=== PATIENT | male | born 1965 | race American Indian/Alaskan Native ===

== ENCOUNTER 2019-03-15 17:46 | Observation (INO) | payer OTHER ==
--- NOTE | 2019-03-15 18:44 | Emergency Department Report ---
HPI - General Chief Complaint: Fall Time Seen by Provider: 03/15/19 18:29 - HPI HPI: Room 26 The patient is a 53-year-old male presenting with chief complaint of syncope. The patient states she was initially to stay to help when he began to feel dizzy while standing. Family states the patient fell backwards and was unresponsive for 5-7 minutes. Patient denied any other preceding symptoms including chest pain, shortness of breath, palpitations or pain of any type. When asked how his feeling down the patient replies he feels "good." ED Past Medical Hx - Past Medical History Previous Medical History?: Yes Additional medical history: Cerebral anyeurysm s/p clipping - Surgical History Past Surgical History?: Yes Additional Surgical History: brain clips - Family History Family history: no significant - Social History Smoking Status: Never Smoker Substance Use Type: None (denies illicit drug use), Alcohol (occasional) - Medications Home Medications: Home Medications Medication Instructions Recorded Confirmed Last Taken Type AtorvaSTATin [Lipitor] 10 mg PO QHS 03/15/19 03/15/19 Unknown History DULoxetine [Cymbalta] 30 mg PO QDAY 03/15/19 03/15/19 Unknown History Docusate Sodium [Colace] 100 mg PO BID PRN 03/15/19 03/15/19 Unknown History levETIRAcetam [Keppra TAB] 1,000 mg PO BID 03/15/19 03/15/19 Unknown History ED Review of Systems ROS: Stated complaint: SYNCOPAL EPISODE Other details as noted in HPI Constitutional: no symptoms reported Eyes: denies: eye pain ENT: denies: throat pain Respiratory: no symptoms reported Cardiovascular: denies: chest pain, palpitations Endocrine: no symptoms reported Gastrointestinal: denies: abdominal pain Genitourinary: denies: dysuria Musculoskeletal: denies: back pain Neurological: other (syncope, dizziness). denies: headache Physical Exam - Physical Exam Vital Signs: Vital Signs 03/15/19 18:19 Temperature 98.4 F Pulse Rate 74 Respiratory 16 Rate Blood Pressure 113/72 O2 Sat by Pulse 97 Oximetry Physical Exam: GENERAL: The patient is well-developed well-nourished male lying on stretcher not appearing to be in acute distress. [] HEENT: Normocephalic. Atraumatic. Extraocular motions are intact. Patient has moist mucous membranes. NECK: Supple. I can midline CHEST/LUNGS: Clear to auscultation. There is no respiratory distress noted. HEART/CARDIOVASCULAR: Regular. There is no tachycardia. There is no gallop rub or murmur. ABDOMEN: Abdomen is soft, nontender. Patient has normal bowel sounds. There is no abdominal distention. SKIN: There is no rash. There is no edema. There is no diaphoresis. NEURO: The patient is awake, alert, and oriented. The patient is cooperative. The patient has no focal neurologic deficits. The patient has normal speech. Cranial nerves II through XII grossly intact, no drift MUSCULOSKELETAL: There is no evidence of acute injury. ED Course Vital Signs 03/15/19 18:19 Temperature 98.4 F Pulse Rate 74 Respiratory 16 Rate Blood Pressure 113/72 O2 Sat by Pulse 97 Oximetry ED Medical Decision Making - Lab Data Result diagrams: 03/15/19 19:30 03/15/19 19:30 Laboratory Tests 03/15/19 03/15/19 03/15/19 19:30 19:30 19:30 WBC 3.8 L RBC 4.20 Hgb 11.7 L Hct 36.4 MCV 87 MCH 28 MCHC 32 RDW 14.5 Plt Count 213 Lymph % (Auto) 49.0 H [place] % (Auto) 12.2 H Eos % (Auto) 3.1 Baso % (Auto) 0.2 Lymph # 1.8 [place] # 0.5 Eos # 0.1 Baso # 0.0 Seg Neutrophils % 35.5 L Seg Neutrophils # 1.3 L PT 15.1 H INR 1.20 H APTT 32.6 D-Dimer < 135.00 Sodium 143 Potassium 4.0 Chloride 106.6 Carbon Dioxide 25 Anion Gap 15 BUN 11 Creatinine 0.9 Estimated GFR > 60 BUN/Creatinine Ratio 12 Glucose 131 H Calcium 9.2 Magnesium 2.30 Total Bilirubin < 0.20 AST 14 ALT 11 Alkaline Phosphatase 81 Total Creatine Kinase 71 CK-MB (CK-2) < 1.0 CK-MB (CK-2) Rel Index 1.4 Troponin T < 0.010 Total Protein 6.8 Albumin 4.2 Albumin/Globulin Ratio 1.6 TSH Free T4 Plasma/Serum Alcohol 03/15/19 03/15/19 19:30 19:30 WBC RBC Hgb Hct MCV MCH MCHC RDW Plt Count Lymph % (Auto) [place] % (Auto) Eos % (Auto) Baso % (Auto) Lymph # [place] # Eos # Baso # Seg Neutrophils % Seg Neutrophils # PT INR APTT D-Dimer Sodium Potassium Chloride Carbon Dioxide Anion Gap BUN Creatinine Estimated GFR BUN/Creatinine Ratio Glucose Calcium Magnesium Total Bilirubin AST ALT Alkaline Phosphatase Total Creatine Kinase CK-MB (CK-2) CK-MB (CK-2) Rel Index Troponin T Total Protein Albumin Albumin/Globulin Ratio TSH 1.970 Free T4 0.75 L Plasma/Serum Alcohol < 0.01 - EKG Data -: EKG Interpreted by Me EKG shows normal: sinus rhythm Rate: normal - EKG Data When compared to previous EKG there are: previous EKG unavailable Interpretation: other (no ischemic changes seen) - Radiology Data Radiology results: report reviewed (CT head, CT cervical spine), image reviewed (CT head, CT cervical spine) Findings [facility] [address] [place] [address] Cat Scan Report Signed Patient: MARCIAL LARSON MR#: [id number] 9 : 1965 Acct:[id number] Age/Sex: 53 / M ADM Date: 03/15/19 Loc: ED Attending Dr: Ordering Physician: ELBA SOGN MD Date of Service: 03/15/19 Procedure(s): CT head/brain wo con Accession Number(s): [id number] cc: ELBA SONG MD CT head/brain wo con INDICATION / CLINICAL INFORMATION: 53 years Male; fall. TECHNIQUE: Routine CT head without contrast. All CT scans at this location are performed using CT dose reduction for ALARA by means of automated exposure control. CO MPARISON: None. FINDINGS: BRAIN / INTRACRANIAL CONTENTS: I do not see intracranial sequela from the trauma. No scalp hematoma is seen. Focal area of scalp thickening is seen in the right frontal region. No air-fluid level in the visualized portions of the paranasal sinuses. 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 I do not see recurrent subarachnoid hemorrhage or CT findings to suggest acute or subacute infarction. Both temporal horn tips are markedly dilated more on the right side suggesting volume loss in the hippocampi. No acute hemorrhage, mass effect, midline shift, hydrocephalus, or acute, large territorial infarct. CRANIOCERVICAL JUNCTION: No significant abnormality. ORBITS: No significant abnormality of visualized orbits. SINUSES / MASTOIDS: No significant abnormality of the visualized paranasal sinuses or mastoid air cells. ADDITIONAL FINDINGS: None. 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 Signer Name: Babak Ramires MD Signed: 03/15/2019 7:13 PM Workstation Name: [id number] Transcribed By: BS Dictated By: Babak Subramanian MD Electronically Authenticated By: Babak Subramanian MD Signed Date/Time: 03/15/191912 DD/ 09 TD/TT: Findings [facility] [address] [place] [address] Cat Scan Report Signed Patient: MARCIAL LARSON MR#: [id number] 9 : 1965 Acct:[id number] Age/Sex: 53 / M ADM Date: 03/15/19 Loc: ED Attending Dr: Ordering Physician: ELBA SONG MD Date of Service: 03/15/19 Procedure(s): CT cervical spine wo con Accession Number(s): [id number] cc: ELBA SNOG MD Exam: CT cervical spine History: fall; Technique: Contiguous thin cut axial images obtained through the cervical spine. Sagittal and coronal reconstructions performed by the technologist. All CT scans at this location are performed using CT dose reduction for ALARA by means of automated exposure control. Findings: No priors. There is no evidence of fracture or traumatic subluxation. Rigid spine is seen in the entire cervical spine to dense ossification of the anterior longitudinal ligament from C2 at least to T2 vertebral body. Ossification of the posterior longitudinal ligament is also seen. Interspinous ligament at C6-C7 level is also fused. Disc space is still preserved in the cervical region. Vertebral bodies are normal in height and alignment. No significant degenerative change seen in the uncinate or facet joints. No significant canal stenosis or osseous foraminal narrowing. Surrounding soft tissues are grossly normal. I mpression: I do not see fracture in the cervical spine. 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 ED Disposition Clinical Impression: Syncope Disposition: 09 OP ADMIT IP TO THIS HOSP Is pt being admited?: Yes Condition: Fair Instructions: Syncope (ED) Time of Disposition: 21:19 (hospitalist notified (Dr Brenner))
--- NOTE | 2019-03-15 19:18 | Cat Scan Report ---
CT head/brain wo con INDICATION / CLINICAL INFORMATION: 53 years Male; fall. TECHNIQUE: Routine CT head without contrast. All CT scans at this location are performed using CT dos e reduction for ALARA by means of automated exposure control. COMPARISON: None. FINDINGS: BRAIN / INTRACRANIAL CONTENTS: I do not see intracranial sequela from the trauma. No scalp hematoma i s seen. Focal area of scalp thickening is seen in the right frontal region. No air-fluid level in the visualized portions of the paranasal sinuses. 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 I do not see recurrent subarachnoid hemorrhage or CT findings to suggest acute or subacute infarction . Both temporal horn tips are markedly dilated more on the right side suggesting volume loss in the hip pocampi. No acute hemorrhage, mass effect, midline shift, hydrocephalus, or acute, large territorial infarct. CRANIOCERVICAL JUNCTION: No significant abnormality. ORBITS: No significant abnormality of visualized orbits. SINUSES / MASTOIDS: No significant abnormality of the visualized paranasal sinuses or mastoid air mateo ls. ADDITIONAL FINDINGS: None. 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 Signer Name: Babak Ramires MD Signed: 03/15/2019 7:13 PM Workstation Name: [id number]
--- NOTE | 2019-03-15 19:24 | Cat Scan Report ---
Exam: CT cervical spine History: fall; Technique: Contiguous thin cut axial images obtained through the cervical spine. Sagittal and marshall l reconstructions performed by the technologist. All CT scans at this location are performed using CT dose reduction for ALARA by means of automated exposure control. Findings: No priors. There is no evidence of fracture or traumatic subluxation. Rigid spine is seen in the entire cervical spine to dense ossification of the anterior longitudinal l igament from C2 at least to T2 vertebral body. Ossification of the posterior longitudinal ligament is also seen. Interspinous ligament at C6-C7 level is also fused. Disc space is still preserved in the cervical region. Vertebral bodies are normal in height and alignment. No significant degenerative change seen in the uncinate or facet joints. No significant canal stenosi s or osseous foraminal narrowing. Surrounding soft tissues are grossly normal. Impression: I do not see fracture in the cervical spine. 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
[2019-03-15 19:45] LABS: Basophils % (Auto) 0.2 % (0.0-1.8); Eosinophils # (Auto) 0.1 K/mm3 (0.0-0.4); Eosinophils % (Auto) 3.1 % (0.0-4.3); Hematocrit 36.4 % (35.5-45.6); Hemoglobin 11.7 gm/dl (11.8-15.2); Lymphocytes # (Auto) 1.8 K/mm3 (1.2-5.4); Mean Corpuscular HGB Conc 32 % (32-34); Mean Corpuscular Volume 87 fl (84-94); Monocytes # (Auto) 0.5 K/mm3 (0.0-0.8); Monocytes % (Auto) 12.2 % (0.0-7.3); Platelet Count 213 K/mm3 (140-440); Red Cell Distribution Width 14.5 % (13.2-15.2)
[2019-03-15 20:00] LABS: Partial Thromboplastin Time 32.6 Sec. (24.2-36.6)
[2019-03-15 20:09] LABS: Alanine Aminotransferase 11 units/L (7-56); Albumin 4.2 g/dL (3.9-5); BUN/Creatinine Ratio 12; Blood Urea Nitrogen 11 mg/dL (9-20); Calcium 9.2 mg/dL (8.4-10.2); Hemolysis Index 9
[2019-03-15 20:16] LABS: Creatine Kinase MB < 1.0 ng/mL (0.0-4.0); Free T4 (Free Thyroxine) 0.75 ng/dL (0.76-1.46)
[2019-03-15] MEDS ORDERED: ACETAMINOPHEN 325 MG TAB PO PRN (21:36)
[2019-03-15] MEDS ORDERED: ONDANSETRON 4 MG/2 ML INJ IV PRN (21:36)
--- NOTE | 2019-03-15 21:37 | History and Physical Report ---
History of Present Illness Chief complaint: I passed out History of present illness: 53 YO Male with Seizure Disorder, Obesity, HLD presents to ED for evaluation. Pt states that he was in his usual state of health when he suddenly felt dizzy while standing and subsequently lost consciousness. According to witnesses, the patient was confused after waking up and the entire episode lasted for approximately 5-7 minutes. Pt transported to [facility] via private vehicle. Pt seen and evaluated in ED. Pt placed in Observation status and admitted to medical floor for evaluation of syncope. Pt denies fever, chills, CP, shortness of breath, Palpitations, NVD, Trauma, BRBPR, Prolonged travel/immobility, individual/family history of DVT/PE/Bleeding/Blood Clotting Disorder, Productive Cough, Skin Rash or recent ill contacts. No prior admission for review. All listed medication reconciled at time of admission. Past History Past Medical History: other (see hpi) Past Surgical History: Other (Brain aneuryms clipping.) Social history: , lives with family. denies: smoking, alcohol abuse, prescription drug abuse Family history: no significant family history (reviewed) Medications and Allergies Allergies Allergy/AdvReac Type Severity Reaction Status Date / Time No Known Allergies Allergy Verified 03/15/19 18:19 Home Medications Medication Instructions Recorded Confirmed Last Taken Type AtorvaSTATin [Lipitor] 10 mg PO QHS 03/15/19 03/15/19 Unknown History DULoxetine [Cymbalta] 30 mg PO QDAY 03/15/19 03/15/19 Unknown History Docusate Sodium [Colace] 100 mg PO BID PRN 03/15/19 03/15/19 Unknown History levETIRAcetam [Keppra TAB] 1,000 mg PO BID 03/15/19 03/15/19 Unknown History Active Meds: Active Medications Acetaminophen (Tylenol) 650 mg PO Q4H PRN PRN Reason: Pain MILD(1-3)/Fever >100.5/MONTERO Ondansetron HCl (Zofran) 4 mg IV Q8H PRN PRN Reason: Nausea And Vomiting Sodium Chloride (Sodium Chloride Flush Syringe 10 Ml) 10 ml IV BID RONALDO Review of Systems Constitutional: no weight loss, no weight gain, no fever, no chills Ears, nose, mouth and throat: no ear pain, no ear discharge, no decreased hear ing, no nasal congestion Cardiovascular: syncope, no chest pain, no orthopnea Respiratory: no cough, no cough with sputum, no excessive sputum, no hemoptysis, no shortness of breath, no dyspnea on exertion Gastrointestinal: no nausea, no vomiting, no diarrhea, no constipation, no change in bowel habits Genitourinary Male: no hematuria, no flank pain, no discharge, no urinary frequency, no urinary hesitancy Rectal: no pain, no incontinence, no bleeding Musculoskeletal: no neck stiffness, no neck pain, no shooting arm pain, no arm numbness/tingling, no shooting leg pain Integumentary: no rash, no pruritis, no redness, no sores, no wounds Neurological: syncope, no transient paralysis, no paralysis, no weakness, no parathesias, no numbness, no tingling, no seizures Psychiatric: no anxiety, no memory loss, no change in sleep habits, no sleep disturbances, no hypersomnia, no change in libido, no suicidal ideation Endocrine: no cold intolerance, no heat intolerance, no polyphagia, no excessive thirst, no polydipsia, no polyuria, no nocturia Hematologic/Lymphatic: no easy bruising, no easy bleeding, no lymphedema Allergic/Immunologic: no urticaria, no allergic rhinitis, no persistent infec tions Exam - Constitutional Vitals: Temp Pulse Resp BP Pulse Ox 98 F 68 17 113/67 100 03/15/19 19:10 03/15/19 19:10 03/15/19 19:10 03/15/19 19:10 03/15/19 19:10 General appearance: Present: no acute distress, well-nourished - EENT Eyes: Present: PERRL ENT: hearing intact, clear oral mucosa - Neck Neck: Present: supple, normal ROM - Respiratory Respiratory effort: normal Respiratory: bilateral: CTA - Cardiovascular Heart Sounds: Present: S1 & S2. Absent: rub, click - Extremities Extremities: pulses symmetrical, No edema Peripheral Pulses: within normal limits - Abdominal General gastrointestinal: Present: soft, non-tender, non-distended, normal bowel sounds Male genitourinary: Present: normal - Integumentary Integumentary: Present: clear, warm, dry - Musculoskeletal Musculoskeletal: gait normal, strength equal bilaterally - Psychiatric Psychiatric: appropriate mood/affect, intact judgment & insight - Neurologic Neurologic: CNII-XII intact, moves all extremities Results - Labs CBC & Chem 7: 03/15/19 19:30 03/15/19 19:30 Labs: Abnormal lab results 03/15/19 03/15/19 03/15/19 Range/Units 19:30 19:30 19:30 WBC 3.8 L (4.5-11.0) K/mm3 Hgb 11.7 L (11.8-15.2) gm/dl Lymph % (Auto) 49.0 H (13.4-35.0) % [place] % (Auto) 12.2 H (0.0-7.3) % Seg Neutrophils % 35.5 L (40.0-70.0) % Seg Neutrophils # 1.3 L (1.8-7.7) K/mm3 PT 15.1 H (12.2-14.9) Sec. INR 1.20 H (0.87-1.13) Glucose 131 H (75-100) mg/dL Free T4 (0.76-1.46) ng/dL 03/15/19 Range/Units 19:30 WBC (4.5-11.0) K/mm3 Hgb (11.8-15.2) gm/dl Lymph % (Auto) (13.4-35.0) % [place] % (Auto) (0.0-7.3) % Seg Neutrophils % (40.0-70.0) % Seg Neutrophils # (1.8-7.7) K/mm3 PT (12.2-14.9) Sec. INR (0.87-1.13) Glucose (75-100) mg/dL Free T4 0.75 L (0.76-1.46) ng/dL Assessment and Plan - Patient Problems (1) Syncope Current Visit: Yes Status: Acute Qualifiers: Encounter type: initial encounter Plan to address problem: CT head, neuro check, seizure precautions, remote telemetry, (2) Seizure disorder Current Visit: Yes Status: Acute Plan to address problem: Keppra level, seizure precautions, neuro checks. (3) DVT prophylaxis Current Visit: Yes Status: Acute Plan to address problem: SCD to BLE while in bed,
[2019-03-15] MEDS ORDERED: DOCUSATE SODIUM 100 MG CAP PO PRN (21:38)
[2019-03-15] MEDS: levETIRAcetam 500 MG TAB PO SCH (22:05)
[2019-03-15] MEDS ORDERED: levETIRAcetam 500 MG TAB PO ONE (22:05)
[2019-03-15] MEDS ORDERED: SODIUM CHLORIDE 0.9% 1000 ML 1,000 ML ONE (22:38)
[2019-03-15 22:51] LABS: Bilirubin,Urine NEG (Negative); Blood,Urine NEG (Negative); Color,Urine Yellow (Yellow); Mucus,Urine FEW /HPF; Protein,Urine <15 mg/dL mg/dL (Negative)
[2019-03-15 22:59] LABS: Amphetamine Screen,Urine PRESUMPTIVE NEGATIVE; Benzodiazepines Screen,Urine PRESUMPTIVE NEGATIVE; Cocaine Screen,Urine PRESUMPTIVE NEGATIVE; Methadone Screen,Urine PRESUMPTIVE NEGATIVE; Opiate Screen,Urine PRESUMPTIVE NEGATIVE
[2019-03-15 23:12] LABS: Cannabinoid Screen,Urine PRESUMPTIVE POSITIVE
[2019-03-15] MEDS: SODIUM CHLORIDE 0.9% 1000 ML 1,000 ML IV SCH (23:28)
--- NOTE | 2019-03-16 09:37 | Progress Note ---
Assessment and Plan Assessment and plan: 53-year-old man with history of seizure disorder, obesity, hyperlipidemia who was in his usual state of health when he suddenly felt dizzy and lost consciousness. Per his he was in a standing position and fell. There was no seizure activity, he passed out and was unresponsive for 5 minutes after which he was back to normal mentation. Patient has history of cerebral aneurysm status post neurosurgery with aneurysm clip clip in August 2018 and since then patient has never returned to his previ ous mental status. His new baseline involved him being confused at all times. His is very concerned that he falls multiple times a day. She has trouble controlling his impulsive behavior. She is not able to take care of him because she has 4 small children at home CT head; no acute findings Diagnosis Chronic encephalomalacia with confusion due to previous cerebral aneurysm that is status post surgery. With behavioral disturbance Syncope Transient autonomic imbalance Seizure disorder Marijuana abuse Presumed dehydration -Acute metabolic encephalopathy Ataxia/gait instability Plan -Mental health consult pending, patient put on Haldol as needed and trazodone at bedtime, they will see the patient in the a.m. Patient has had some episodes of mild bradycardia, continue to monitor heart rate on telemetry Orthostatic vital signs were ordered yesterday and still pending -UDS positive for marijuana, patient counseled about cessation -Continue IV fluids -PT consult, would like subacute rehab placement Preventative health counseling performed for 17 minutes DVT prophylaxis with Lovenox History Interval history: Patient has been confused. He pulled out his IV line 3 times, has tried to get out of bed multiple times. Review of systems Constitutional: No fevers, no malaise, no joint pains CVS: No chest pain, no orthopnea, no pedal edema GI: No abdominal pain, no diarrhea, no vomiting, no constipation Respiratory: No shortness of breath, no wheezing, no coughing Hospitalist Physical - Physical exam Narrative exam: General.: Appears well, no distress, nontoxic HEENT: Moist mucous membranes, extraocular muscles intact, no lymphadenopathy Neck: supple Cardiac: S1-S2 heard Lungs: clear to auscultation bilaterally Abdomen: soft , nontender, nondistended, bowel sounds positive Extremities: no edema clubbing or cyanosis Skin: no rash or lesions Neurologic: no gross focal deficits, patient is confused, thinks it is 1998 that he is at [facility]. He is only oriented to person and is unable to articulate why he is even in the hospital. Psych: calm, and cooperative, but very impulsive - Constitutional Vitals: Temp Pulse Resp BP Pulse Ox 98.1 F 58 L 18 121/70 99 03/16/19 06:24 03/16/19 06:24 03/16/19 06:24 03/16/19 06:24 03/16/19 05:53 General appearance: Present: no acute distress, well-nourished Results - Labs CBC & Chem 7: 03/15/19 19:30 03/15/19 19:30 Labs: Laboratory Last Values WBC 3.8 K/mm3 (4.5-11.0) L 03/15/19 19: RBC 4.20 M/mm3 (3.65-5.03) 03/15/19 19:30 Hgb 11.7 gm/dl (11.8-15.2) L 03/15/19 19:30 Hct 36.4 % (35.5-45.6) 03/15/19 19:30 MCV 87 fl (84-94) 03/15/19 19:30 MCH 28 pg (28-32) 03/15/19 19:30 MCHC 32 % (32-34) 03/15/19 19:30 RDW 14.5 % (13.2-15.2) 03/15/19 19:30 Plt Count 213 K/mm3 (140-440) 03/15/19 19:30 Lymph % (Auto) 49.0 % (13.4-35.0) H 03/15/19 19:30 [place] % (Auto) 12.2 % (0.0-7.3) H 03/15/19 19:30 Eos % (Auto) 3.1 % (0.0-4.3) 03/15/19 19:30 Baso % (Auto) 0.2 % (0.0-1.8) 03/15/19 19:30 Lymph # 1.8 K/mm3 (1.2-5.4) 03/15/19 19:30 [place] # 0.5 K/mm3 (0.0-0.8) 03/15/19 19:30 Eos # 0.1 K/mm3 (0.0-0.4) 03/15/19 19:30 Baso # 0.0 K/mm3 (0.0-0.1) 03/15/19 19:30 Seg Neutrophils % 35.5 % (40.0-70.0) L 03/15/19 19:30 Seg Neutrophils # 1.3 K/mm3 (1.8-7.7) L 03/15/19 19:30 PT 15.1 Sec. (12.2-14.9) H 03/15/19 19:30 INR 1.20 (0.87-1.13) H 03/15/19 19:30 APTT 32.6 Sec. (24.2-36.6) 03/15/19 19:30 D-Dimer < 135.00 ng/mlDDU (0-234) 03/15/19 19:30 Sodium 143 mmol/L (137-145) 03/15/19 19:30 Potassium 4.0 mmol/L (3.6-5.0) 03/15/19 19:30 Chloride 106.6 mmol/L (98-107) 03/15/19 19:30 Carbon Dioxide 25 mmol/L (22-30) 03/15/19 19:30 Anion Gap 15 mmol/L 03/15/19 19:30 BUN 11 mg/dL (9-20) 03/15/19 19:30 Creatinine 0.9 mg/dL (0.8-1.5) 03/15/19 19:30 Estimated GFR > 60 ml/min 03/15/19 19:30 BUN/Creatinine Ratio 12 % 03/15/19 19:30 Glucose 131 mg/dL (75-100) H 03/15/19 19:30 Calcium 9.2 mg/dL (8.4-10.2) 03/15/19 19:30 Magnesium 2.30 mg/dL (1.7-2.3) 03/15/19 19:30 Total Bilirubin < 0.20 mg/dL (0.1-1.2) 03/15/19 19:30 AST 14 units/L (5-40) 03/15/19 19:30 ALT 11 units/L (7-56) 03/15/19 19:30 Alkaline Phosphatase 81 units/L (35-129) 03/15/19 19:30 Total Creatine Kinase 71 units/L (55-170) 03/15/19 19:30 CK-MB (CK-2) < 1.0 ng/mL (0.0-4.0) 03/15/19 19:30 CK-MB (CK-2) Rel Index 1.4 (0-4) 03/15/19 19:30 Troponin T < 0.010 ng/mL (0.00-0.029) 03/15/19 19:30 Total Protein 6.8 g/dL (6.3-8.2) 03/15/19 19:30 Albumin 4.2 g/dL (3.9-5) 03/15/19 19: Albumin/Globulin Ratio 1.6 % 03/15/19 19: TSH 1.970 mlU/mL (0.270-4.200) 03/15/19 19: Free T4 0.75 ng/dL (0.76-1.46) L 03/15/19 19:30 Urine Color Yellow (Yellow) 03/15/19 22:11 Urine Turbidity Clear (Clear) 03/15/19 22:11 Urine pH 7.0 (5.0-7.0) 03/15/19 22:11 Ur Specific [place] 1.016 (1.003-1.030) 03/15/19 22:11 Urine Protein <15 mg/dl mg/dL (Negative) 03/15/19 22:11 Urine Glucose (UA) Neg mg/dL (Negative) 03/15/19 22:11 Urine Ketones Neg mg/dL (Negative) 03/15/19 22:11 Urine Blood Neg (Negative) 03/15/19 22:11 Urine Nitrite Neg (Negative) 03/15/19 22:11 Urine Bilirubin Neg (Negative) 03/15/19 22:11 Urine Urobilinogen 2.0 mg/dL (<2.0) 03/15/19 22:11 Ur Leukocyte Esterase Neg (Negative) 03/15/19 22:11 Urine WBC (Auto) 1.0 /HPF (0.0-6.0) 03/15/19 22:11 Urine RBC (Auto) 1.0 /HPF (0.0-6.0) 03/15/19 22:11 U Epithel Cells (Auto) < 1.0 /HPF (0-13.0) 03/15/19 22:11 Urine Mucus Few /HPF 03/15/19 22:11 Urine Opiates Screen Presumptive negative 03/15/19 22:11 Urine Methadone Screen Presumptive negative 03/15/19 22:11 Ur Barbiturates Screen Presumptive negative 03/15/19 22:11 Ur Phencyclidine Scrn Presumptive negative 03/15/19 22:11 Ur Amphetamines Screen Presumptive negative 03/15/19 22:11 U Benzodiazepines Scrn Presumptive negative 03/15/19 22:11 Urine Cocaine Screen Presumptive negative 03/15/19 22:11 U Marijuana (THC) Screen Presumptive positive 03/15/19 22:11 Drugs of Abuse Note Disclamer 03/15/19 22:11 Plasma/Serum Alcohol < 0.01 % (0-0.07) 03/15/19 19:30 Active Medications - Current Medications Current Medications: Generic Name Dose Route Start Last Admin Trade Name Freq PRN Reason Stop Dose Admin Acetaminophen 650 mg 03/15/19 21:36 Tylenol PO Q4H PRN Pain MILD(1-3)/Fever >100.5/MONTERO Atorvastatin Calcium 10 mg 03/15/19 22:00 03/15/19 22:05 Atorvastatin PO 10 mg QHS RONALDO Administration Docusate Sodium 100 mg 03/15/19 21:38 Colace PO BID PRN Constipation Duloxetine HCl 30 mg 03/16/19 10:00 Cymbalta PO QDAY RONALDO Enoxaparin Sodium 40 mg 03/16/19 22:00 Enoxaparin SUB-Q QDAY@2200 RONALDO Sodium Chloride 1,000 mls @ 100 mls/hr 03/15/19 22:00 03/15/19 23:28 Nacl 0.9% 1000 Ml IV 100 mls/hr DIRECT RONALDO Administration Levetiracetam 1,000 mg 03/15/19 22:00 03/15/19 22:05 Keppra PO 1,000 mg BID RONALDO Administration Ondansetron HCl 4 mg 03/15/19 21:36 Zofran IV Q8H PRN Nausea And Vomiting Sodium Chloride 10 ml 03/15/19 22:00 03/15/19 22:01 Sodium Chloride Flush Syringe 10 Ml IV 10 ml BID RONALDO Administration Sodium Chloride 10 ml 03/15/19 21:36 Sodium Chloride Flush Syringe 10 Ml IV PRN PRN LINE FLUSH
[2019-03-16] MEDS: levETIRAcetam 500 MG TAB PO SCH ×2 (10:00→21:10)
[2019-03-16] MEDS: DULoxetine 30 MG CAP PO SCH (10:00)
[2019-03-16] MEDS: SODIUM CHLORIDE 0.9% 1000 ML 1,000 ML IV SCH (18:29)
[2019-03-16] MEDS: ENOXAPARIN 40 MG/0.4 ML INJ SUB-Q SCH (21:10)
[2019-03-16] MEDS: diphenhydrAMINE 25 MG CAP PO PRN (21:12)
[2019-03-16] MEDS ORDERED: traZODone 50 MG TAB PO SCH (22:00)
[2019-03-17] MEDS: SODIUM CHLORIDE 0.9% 1000 ML 1,000 ML IV SCH ×2 (04:09→18:13)
[2019-03-17] MEDS: DULoxetine 30 MG CAP PO SCH (09:41)
[2019-03-17] MEDS: HALOPERIDOL 1 MG TAB PO PRN ×2 (09:41→20:09)
[2019-03-17] MEDS: levETIRAcetam 500 MG TAB PO SCH ×3 (09:42→21:30)
[2019-03-17] MEDS: LORazepam 2 MG/ML VIAL IV PRN (14:33)
--- NOTE | 2019-03-17 15:32 | Consultation ---
History of Present Illness - Reason for Consult Consult date: 03/17/19 Reason for consult: Mental Health Evaluation Requesting physician: NA JASSO - Chief Complaint Chief complaint: "I'm okay today" - History of Present Psychiatric Illness 53 y.o. male who presented to the ER for syncope. Psychiatry was consulted to see the patient for behavioral disturbance. Today the patient was calm, but confused during the assessment. Some of his answers to questions were not logical. Per collateral information from the patient's Yael Dukes who was at the [facility], she stated that her mental status changed after he was dx with a Cerebral Aneurysm in August 2018. She stated that he had an Aneurysm Clip after being dx. She stated that the patient confused and fall often. She denies a past psy hx by her . 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 She denies substance/alcohol abuse hx by her when asked. She did sate that the patient isn't getting sleep at night. The patient denies SI/HI's. Medications and Allergies Allergies Allergy/AdvReac Type Severity Reaction Status Date / Time No Known Allergies Allergy Verified 03/15/19 18:19 Home Medications Medication Instructions Recorded Confirmed Last Taken Type AtorvaSTATin [Lipitor] 10 mg PO QHS 03/15/19 03/15/19 Unknown History DULoxetine [Cymbalta] 30 mg PO QDAY 03/15/19 03/15/19 Unknown History Docusate Sodium [Colace] 100 mg PO BID PRN 03/15/19 03/15/19 Unknown History levETIRAcetam [Keppra TAB] 1,000 mg PO BID 03/15/19 03/15/19 Unknown History Active Meds: Active Medications Acetaminophen (Tylenol) 650 mg PO Q4H PRN PRN Reason: Pain MILD(1-3)/Fever >100.5/MONTERO Atorvastatin Calcium (Atorvastatin) 10 mg PO QHS RONALDO Last Admin: 03/16/19 21:12 Dose: 10 mg Documented by: Diphenhydramine HCl (Benadryl) 25 mg PO Q6H PRN PRN Reason: Itching Last Admin: 03/16/19 21:12 Dose: 25 mg Documented by: Docusate Sodium (Colace) 100 mg PO BID PRN PRN Reason: Constipation Duloxetine HCl (Cymbalta) 30 mg PO QDAY [facility] Last Admin: 03/17/19 09:41 Dose: 30 mg Documented by: Enoxaparin Sodium (Enoxaparin) 40 mg SUB-Q QDAY@2200 [facility] Last Admin: 03/16/19 21:10 Dose: 40 mg Documented by: Haloperidol (Haldol) 1 mg PO Q6H PRN PRN Reason: Agitation Last Admin: 03/17/19 09:41 Dose: 1 mg Documented by: Sodium Chloride (Nacl 0.9% 1000 Ml) 1,000 mls @ 100 mls/hr IV DIRECT [facility] Last Admin: 03/17/19 04:09 Dose: 100 mls/hr Documented by: Levetiracetam (Keppra) 1,000 mg PO BID [facility] Last Admin: 03/17/19 09:42 Dose: 1,000 mg Documented by: Lorazepam (Ativan) 1 mg IV Q4H PRN PRN Reason: Agitation Last Admin: 03/17/19 14:33 Dose: 1 mg Documented by: Ondansetron HCl (Zofran) 4 mg IV Q8H PRN PRN Reason: Nausea And Vomiting Sodium Chloride (Sodium Chloride Flush Syringe 10 Ml) 10 ml IV BID [facility] Last Admin: 03/17/19 09:42 Dose: 10 ml Documented by: Sodium Chloride (Sodium Chloride Flush Syringe 10 Ml) 10 ml IV PRN PRN PRN Reason: LINE FLUSH Past psychiatric history - Past Medical History Past Medical History: other (Cerebral Aneurysm ) Past Surgical History: Other (Aneurysm Clip ) - past Psychiatric treatment and history psychiatric treatment history: Denies a psy hx and afam psy hx. This was confirmed by the patient's Yael Dukes. - Social History Social history: lives with family Mental Status Exam - Vital signs Last Vital Signs Temp 98.2 F 03/17/19 12:05 Pulse 82 03/17/19 12:05 Resp 18 03/17/19 12:05 BP 136/93 03/17/19 12:05 Pulse Ox 100 03/17/19 12:05 - Exam Narrative exam: MSE: Appearance: calm, cooperative Behavior: regular eye contact Speech: regular rate and tone Mood:: "well" Affect: congruent to mood Thought Process: some confusion Thought Content: denies SI/HI's and AVH's Motor Activity: ambulatory Cognition: A/O x2 Insight: limited Judgment: variable Results Result Diagrams: 03/19/19 06:53 03/19/19 06:53 All other labs normal. Assessment and Plan Assessment and plan: Impression: Hx of Cerebral Aneurysm/Aneurysm Clip. Insomnia. Today the patient was calm, but somewhat confused during the assessment. The patient's mental status change is possible residual from past neuro changes. Recommendation/Plan: Start Melatonin 5 mg PO HS for sleep. Will follow up with the patient in [address] Marjorie Robert.
--- NOTE | 2019-03-17 15:34 | Progress Note ---
Assessment and Plan Assessment and plan: Patient is a 53-year-old man with history of seizure disorder, SDH and hyperlipidemia who presented with a syncopal fall and confusion. Patient has history of cerebral aneurysm status post neurosurgery with aneurysm clip clip in August 2018 and since then patient has never returned to his previous mental status. His new baseline involved him being confused at all times. His is very concerned that he falls multiple times a day. She has trouble controlling his impulsive behavior. She is not able to take care of him because she has 4 small children at home. 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 * CT cervical spine without contrast Impression: I do not see fracture in the cervical spine. 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 With behavioral disturbance: Await mental health evaluation, H/O SDH: consult Neurology Syncope with fall, etiology unknown, most likely Transient autonomic imbalance post concussion syndrome Seizure disorder: continue anti-seizure medication, consult Neurology, order EEG Marijuana abuse; patient counseled about cessation Presumed dehydration Ataxia/gait instability: PT DVT prophylaxis with Lovenox Disposition: continue inpatient care, SNF pending History Interval history: Patient was seen and examined. Follow-up on current diagnosis. No overnight events reported to me. Imaging, nursing note, chart, labs and old chart reviewed. Discussed with patient. Hospitalist Physical - Physical exam Narrative exam: Gen: WDWN, NAD, Awake, Alert, Orientated x 1 HEENT: NCAT, EOMI, PERRL, OP Clear Neck: supple, no adenopathy, no thyromegaly, no JVD CVS/Heart: RRR, normal S1S2, pulses present bilaterally Chest/Lungs: CTA B, Symmetrical chest expansion, good air entry bilaterally GI/Abdomen: soft, NTND, good bowel sounds, no guarding or rebound /Bladder: no suprapubic tenderness, no CVA or paraspinal tenderness Extermity/Skin: no c/c/e, no obvious rash MSK: FROM x 4 Neuro: CN 2-12 grossly intact, no new focal deficits Psych: calm - Constitutional Vitals: Temp Pulse Resp BP Pulse Ox 98.2 F 82 18 136/93 100 03/17/19 12:05 03/17/19 12:05 03/17/19 12:05 03/17/19 12:05 03/17/19 12:05 General appearance: Present: no acute distress, well-nourished Results - Labs CBC & Chem 7: 03/15/19 19:30 03/15/19 19:30 Labs: Laboratory Last Values WBC 3.8 K/mm3 (4.5-11.0) L 03/15/19 19:30 RBC 4.20 M/mm3 (3.65-5.03) 03/15/19 19:30 Hgb 11.7 gm/dl (11.8-15.2) L 03/15/19 19:30 Hct 36.4 % (35.5-45.6) 03/15/19 19:30 MCV 87 fl (84-94) 03/15/19 19:30 MCH 28 pg (28-32) 03/15/19 19:30 MCHC 32 % (32-34) 03/15/19 19:30 RDW 14.5 % (13.2-15.2) 03/15/19 19:30 Plt Count 213 K/mm3 (140-440) 03/15/19 19:30 Lymph % (Auto) 49.0 % (13.4-35.0) H 03/15/19 19:30 [place] % (Auto) 12.2 % (0.0-7.3) H 03/15/19 19:30 Eos % (Auto) 3.1 % (0.0-4.3) 03/15/19 19:30 Baso % (Auto) 0.2 % (0.0-1.8) 03/15/19 19:30 Lymph # 1.8 K/mm3 (1.2-5.4) 03/15/19 19:30 [place] # 0.5 K/mm3 (0.0-0.8) 03/15/19 19:30 Eos # 0.1 K/mm3 (0.0-0.4) 03/15/19 19:30 Baso # 0.0 K/mm3 (0.0-0.1) 03/15/19 19:30 Seg Neutrophils % 35.5 % (40.0-70.0) L 03/15/19 19:30 Seg Neutrophils # 1.3 K/mm3 (1.8-7.7) L 03/15/19 19:30 PT 15.1 Sec. (12.2-14.9) H 03/15/19 19:30 INR 1.20 (0.87-1.13) H 03/15/19 19:30 APTT 32.6 Sec. (24.2-36.6) 03/15/19 19:30 D-Dimer < 135.00 ng/mlDDU (0-234) 03/15/19 19:30 Sodium 143 mmol/L (137-145) 03/15/19 19:30 Potassium 4.0 mmol/L (3.6-5.0) 03/15/19 19:30 Chloride 106.6 mmol/L (98-107) 03/15/19 19:30 Carbon Dioxide 25 mmol/L (22-30) 03/15/19 19:30 Anion Gap 15 mmol/L 03/15/19 19:30 BUN 11 mg/dL (9-20) 03/15/19 19:30 Creatinine 0.9 mg/dL (0.8-1.5) 03/15/19 19:30 Estimated GFR > 60 ml/min 03/15/19 19:30 BUN/Creatinine Ratio 12 % 03/15/19 19:30 Glucose 131 mg/dL (75-100) H 03/15/19 19:30 Calcium 9.2 mg/dL (8.4-10.2) 03/15/19 19:30 Magnesium 2.30 mg/dL (1.7-2.3) 03/15/19 19:30 Total Bilirubin < 0.20 mg/dL (0.1-1.2) 03/15/19 19:30 AST 14 units/L (5-40) 03/15/19 19:30 ALT 11 units/L (7-56) 03/15/19 19:30 Alkaline Phosphatase 81 units/L (35-129) 03/15/19 19:30 Total Creatine Kinase 71 units/L (55-170) 03/15/19 19:30 CK-MB (CK-2) < 1.0 ng/mL (0.0-4.0) 03/15/19 19:30 CK-MB (CK-2) Rel Index 1.4 (0-4) 03/15/19 19: Troponin T < 0.010 ng/mL (0.00-0.029) 03/15/19 19:30 Total Protein 6.8 g/dL (6.3-8.2) 03/15/19 19: Albumin 4.2 g/dL (3.9-5) 03/15/19 19: Albumin/Globulin Ratio 1.6 % 03/15/19 19: TSH 1.970 mlU/mL (0.270-4.200) 03/15/19 19: Free T4 0.75 ng/dL (0.76-1.46) L 03/15/19 19:30 Urine Color Yellow (Yellow) 03/15/19 22:11 Urine Turbidity Clear (Clear) 03/15/19 22:11 Urine pH 7.0 (5.0-7.0) 03/15/19 22:11 Ur Specific [place] 1.016 (1.003-1.030) 03/15/19 22:11 Urine Protein <15 mg/dl mg/dL (Negative) 03/15/19 22:11 Urine Glucose (UA) Neg mg/dL (Negative) 03/15/19 22:11 Urine Ketones Neg mg/dL (Negative) 03/15/19 22:11 Urine Blood Neg (Negative) 03/15/19 22:11 Urine Nitrite Neg (Negative) 03/15/19 22:11 Urine Bilirubin Neg (Negative) 03/15/19 22:11 Urine Urobilinogen 2.0 mg/dL (<2.0) 03/15/19 22:11 Ur Leukocyte Esterase Neg (Negative) 03/15/19 22:11 Urine WBC (Auto) 1.0 /HPF (0.0-6.0) 03/15/19 22:11 Urine RBC (Auto) 1.0 /HPF (0.0-6.0) 03/15/19 22:11 U Epithel Cells (Auto) < 1.0 /HPF (0-13.0) 03/15/19 22:11 Urine Mucus Few /HPF 03/15/19 22:11 Urine Opiates Screen Presumptive negative 03/15/19 22:11 Urine Methadone Screen Presumptive negative 03/15/19 22:11 Ur Barbiturates Screen Presumptive negative 03/15/19 22:11 Ur Phencyclidine Scrn Presumptive negative 03/15/19 22:11 Ur Amphetamines Screen Presumptive negative 03/15/19 22:11 U Benzodiazepines Scrn Presumptive negative 03/15/19 22:11 Urine Cocaine Screen Presumptive negative 03/15/19 22:11 U Marijuana (THC) Screen Presumptive positive 03/15/19 22:11 Drugs of Abuse Note Disclamer 03/15/19 22:11 Plasma/Serum Alcohol < 0.01 % (0-0.07) 03/15/19 19:30 Active Medications - Current Medications Current Medications: Generic Name Dose Route Start Last Admin Trade Name Freq PRN Reason Stop Dose Admin Acetaminophen 650 mg 03/15/19 21:36 Tylenol PO Q4H PRN Pain MILD(1-3)/Fever >100.5/MONTERO Atorvastatin Calcium 10 mg 03/15/19 22:00 03/16/19 21:12 Atorvastatin PO 10 mg QHS RONALDO Administration Diphenhydramine HCl 25 mg 03/16/19 20:40 03/16/19 21:12 Benadryl PO 25 mg Q6H PRN Administration Itching Docusate Sodium 100 mg 03/15/19 21:38 Colace PO BID PRN Constipation Duloxetine HCl 30 mg 03/16/19 10:00 03/17/19 09:41 Cymbalta PO 30 mg QDAY RONALDO Administration Enoxaparin Sodium 40 mg 03/16/19 22:00 03/16/19 21:10 Enoxaparin SUB-Q 40 mg QDAY@2200 RONALDO Administration Haloperidol 1 mg 03/16/19 12:02 03/17/19 09:41 Haldol PO 1 mg Q6H PRN Administration Agitation Sodium Chloride 1,000 mls @ 100 mls/hr 03/15/19 22:00 03/17/19 04:09 Nacl 0.9% 1000 Ml IV 100 mls/hr DIRECT RONALDO Administration Levetiracetam 1,000 mg 03/15/19 22:00 03/17/19 09:42 Keppra PO 1,000 mg BID RONALDO Administration Lorazepam 1 mg 03/17/19 14:23 03/17/19 14:33 Ativan IV 1 mg Q4H PRN Administration Agitation Ondansetron HCl 4 mg 03/15/19 21:36 Zofran IV Q8H PRN Nausea And Vomiting Sodium Chloride 10 ml 03/15/19 22:00 03/17/19 09:42 Sodium Chloride Flush Syringe 10 Ml IV 10 ml BID RONALDO Administration Sodium Chloride 10 ml 03/15/19 21:36 Sodium Chloride Flush Syringe 10 Ml IV PRN PRN LINE FLUSH
[2019-03-17] MEDS: diphenhydrAMINE 25 MG CAP PO PRN (20:09)
[2019-03-17] MEDS: ENOXAPARIN 40 MG/0.4 ML INJ SUB-Q SCH ×2 (20:10→21:29)
--- NOTE | 2019-03-17 20:25 | Consultation ---
History of Present Illness Consult date: 03/17/19 Reason for Consult: Syncope Chief complaint: Syncope History of present illness: Patient is a 53 y/o man w/ a h/o stroke w/ residual cognitive impairment and behavioral changes, h/o cerebral aneurysm s/p clipping, h/o seizures. He p/w episode of syncope. he reportedly was feeling dizzy, and suddenly lost consciousness. Patient does not recall what happened when he had episode. He does not report any loss of bowel/bladder control or tongue biting during episode. He states that he is not compliant with keppra at home, and that he manages his own medications. Patient reportedly had loss of consciousness for 5- 7 minutes. Past History Past Medical History: other (h/o stroke w/ residual cognitive impairment and behavioral changes, h/o cerebral aneurysm s/p clipping, h/o seizures) Past Surgical History: Other (Aneurysm Clip ) Social history: lives with family Family history: no significant family history (reviewed) Medications and Allergies Allergies Allergy/AdvReac Type Severity Reaction Status Date / Time No Known Allergies Allergy Verified 03/15/19 18:19 Home Medications Medication Instructions Recorded Confirmed Last Taken Type AtorvaSTATin [Lipitor] 10 mg PO QHS 03/15/19 03/15/19 Unknown History DULoxetine [Cymbalta] 30 mg PO QDAY 03/15/19 03/15/19 Unknown History Docusate Sodium [Colace] 100 mg PO BID PRN 03/15/19 03/15/19 Unknown History levETIRAcetam [Keppra TAB] 1,000 mg PO BID 03/15/19 03/15/19 Unknown History Active Meds: Active Medications Acetaminophen (Tylenol) 650 mg PO Q4H PRN PRN Reason: Pain MILD(1-3)/Fever >100.5/MONTERO Atorvastatin Calcium (Atorvastatin) 10 mg PO QHS [facility] Last Admin: 03/17/19 20:09 Dose: 10 mg Documented by: Diphenhydramine HCl (Benadryl) 25 mg PO Q6H PRN PRN Reason: Itching Last Admin: 03/17/19 20:09 Dose: 25 mg Documented by: Docusate Sodium (Colace) 100 mg PO BID PRN PRN Reason: Constipation Enoxaparin Sodium (Enoxaparin) 40 mg SUB-Q QDAY@2200 [facility] Last Admin: 03/17/19 20:10 Dose: 40 mg Documented by: Haloperidol (Haldol) 1 mg PO Q6H PRN PRN Reason: Agitation Last Admin: 03/17/19 20:09 Dose: 1 mg Documented by: Sodium Chloride (Nacl 0.9% 1000 Ml) 1,000 mls @ 100 mls/hr IV DIRECT [facility] Last Admin: 03/17/19 18:13 Dose: 100 mls/hr Documented by: Levetiracetam (Keppra) 1,000 mg PO BID [facility] Last Admin: 03/17/19 20:09 Dose: 1,000 mg Documented by: Lorazepam (Ativan) 1 mg IV Q4H PRN PRN Reason: Agitation Last Admin: 03/17/19 14:33 Dose: 1 mg Documented by: Melatonin (Melatonin) 5 mg PO QHS [facility] Ondansetron HCl (Zofran) 4 mg IV Q8H PRN PRN Reason: Nausea And Vomiting Sodium Chloride (Sodium Chloride Flush Syringe 10 Ml) 10 ml IV BID [facility] Last Admin: 03/17/19 09:42 Dose: 10 ml Documented by: Sodium Chloride (Sodium Chloride Flush Syringe 10 Ml) 10 ml IV PRN PRN PRN Reason: LINE FLUSH Review of Systems All systems: negative Neurological: syncope Physical Examination - Vital Signs Vital Signs: Vital Signs Temp Pulse Resp BP Pulse Ox 98.4 F 74 16 113/72 97 03/15/19 18:19 03/15/19 18:19 03/15/19 18:19 03/15/19 18:19 03/15/19 18:19 - Physical Exam Narrative exam: Patient is awake, alert, oriented only to self, follows 2-step commands. PERRL, EOMI, VFF, tongue midline, no facial weakness noted, b/l intact to LT. No dysarthria or aphasia noted. 5/5 strength in all extremities. 2+ reflexes throughout. Unable to test FTN and HTS due to restraints. B/l intact to LT. - Constitutional General appearance: comfortable - EENT EENT: Present: ATNC, PERRL, mucous membranes moist, hearing intact, vision intact - Respiratory Respiratory: Present: lungs clear, normal breath sounds - Cardiovascular Cardiovascular: Present: regular rate, normal S1, normal S2 Extremities: Present: no clubbing, cyanosis, no inflammation - Gastrointestinal Gastrointestinal: Present: normoactive bowel sounds, soft, non-tender - Integumentary Integumentary: Present: normal - Musculoskeletal Musculoskeletal: Present: no fluid collection, no pain - Psychiatric Psychiatric: Present: mood/affect appropriate Results - Laboratory Findings CBC and BMP: 03/15/19 19:30 03/15/19 19:30 Abnormal Lab Findings: Abnormal Labs 03/15/19 03/15/19 03/15/19 19:30 19:30 19:30 WBC 3.8 L Hgb 11.7 L Lymph % (Auto) 49.0 H [place] % (Auto) 12.2 H Seg Neutrophils % 35.5 L Seg Neutrophils # 1.3 L PT 15.1 H INR 1.20 H Glucose 131 H Free T4 03/15/19 19:30 WBC Hgb Lymph % (Auto) [place] % (Auto) Seg Neutrophils % Seg Neutrophils # PT INR Glucose Free T4 0.75 L Assessment and Plan Patient is a 53 y/o man w/ a h/o stroke w/ residual cognitive impairment and behavioral changes, h/o cerebral aneurysm s/p clipping, h/o seizures, who p/w episode of loss of consciousness. According to the patient's clinical findings, it is possible that he has had syncope. Alternatively, patient may have had a seizure, however this is less likely. Plan: 1. Syncope: - CT head revealed left frontal encephalomalacia, from previous stroke - This would explain patient's baseline of cognitive deficits and behavioral changes, as he has infarct in frontal cortex. - Recommend checking orthostatic vital signs - Patient states that he is non-compliant with keppra at home. Would recommend for patient's family to assist in monitoring his medications at home, to ensure compliance. - Cont. keppra 1000mg BID - PT/OT - Will cont. to monitor patient. Thank you for allowing me to take part in the care of this patient. Lalito Chavarria MD Neurology
[2019-03-17] MEDS ORDERED: MIRTAZAPINE 15 MG TAB PO SCH (22:00)
[2019-03-17] MEDS: MELATONIN 5 MG TAB PO SCH (23:39)
[2019-03-18] MEDS: SODIUM CHLORIDE 0.9% 1000 ML 1,000 ML IV SCH (03:51)
[2019-03-18] MEDS: diphenhydrAMINE 25 MG CAP PO PRN (05:43)
[2019-03-18] MEDS: HALOPERIDOL 1 MG TAB PO PRN (05:43)
[2019-03-18 06:27] LABS: Hemoglobin 11.9 gm/dl (11.8-15.2); Mean Corpuscular HGB Conc 32 % (32-34); Mean Corpuscular Volume 88 fl (84-94); Platelet Count 204 K/mm3 (140-440); Red Blood Count 4.33 M/mm3 (3.65-5.03)
[2019-03-18 06:58] LABS: BUN/Creatinine Ratio 9; Blood Urea Nitrogen 8 mg/dL (9-20); Hemolysis Index 4
--- NOTE | 2019-03-18 12:17 | Progress Note ---
Subjective - Reason for Consult Consult date: 03/18/19 Reason for consult: Psychiatry Follow-up - Chief Complaint Chief complaint: "The patient was asleep" 53 y.o. male who presented to the ER for syncope. Psychiatry was consulted to see the patient for behavioral disturbance. Today the patient was asleep. Per the MAR the patient was given Haldol PRN for agitation earlier in the AM. Will follow up with the patient in 24 hours. Mental Status Exam - Vital signs Last Vital Signs Temp 98.6 F 03/18/19 05:36 Pulse 67 03/18/19 05:36 Resp 16 03/18/19 05:36 BP 142/93 03/18/19 05:36 Pulse Ox 100 03/18/19 05:36 - Exam Narrative exam: unable to complete the MSE because the patient was asleep. Assessment and Plan Impression: Hx of Cerebral Aneurysm/Aneurysm Clip. Insomnia. Today the patient was asleep. The patient's mental status change is possible residual from past neuro changes. Recommendation/Plan: Continue Melatonin 5 mg PO HS for sleep. Will follow up with the patient in [address] Marjorie Robert.
--- NOTE | 2019-03-18 13:31 | Progress Note ---
Assessment and Plan Patient is a 53 y/o man w/ a h/o stroke w/ residual cognitive impairment and behavioral changes, h/o cerebral aneurysm s/p clipping, h/o seizures, who p/w episode of loss of consciousness. According to the patient's clinical findings, it is possible that he has had syncope. Alternatively, patient may have had a seizure, however this is less likely. Plan: 1. Syncope: - CT head revealed left frontal encephalomalacia, from previous stroke - This would explain patient's baseline of cognitive deficits and behavioral changes, as he has infarct in frontal cortex. - Recommend checking orthostatic vital signs - Discussed with patient's today regarding compliance with medications, and she states that she monitors his medication, and that he has not missed any doses of keppra. He had a previous episode of loss of consciousness, that was felt to be due to hypotension, and anti-HTN meds were decreased after that. also stated that at baseline, patient is usually not aggressive or agitated, and therefore agitation during this admission is likely due to new/unfamiliar surroundings. - Increase keppra to 1500mg BID - PT/OT - Recommend for patient to follow up with neurology outpatient in 2-3 weeks. - Will sign off. Please call with any questions. Thank you for allowing me to take part in the care of this patient. Lalito Chavarria MD Neurology Subjective Date of service: 03/18/19 Principal diagnosis: Syncope Interval history: Patient given haldol this morning for agitation. Objective - Exam Narrative Exam: Patient is awake, alert, oriented only to self, follows 2-step commands. PERRL, EOMI, VFF, tongue midline, no facial weakness noted, b/l intact to LT. No dysarthria or aphasia noted. 5/5 strength in all extremities. 2+ reflexes throughout. Unable to test FTN and HTS due to restraints. B/l intact to LT. - Vital Sign Vital Signs - 12hr 03/18/19 03/18/19 05:36 11:40 Temperature 98.6 F 97.0 F L Pulse Rate 67 70 Respiratory 16 18 Rate Blood Pressure 142/93 141/87 O2 Sat by Pulse 100 97 Oximetry - General Apperance Constitutional: comfortable - EENT EENT: ATNC, PERRL, mucous membranes moist, hearing intact, vision intact - Respiratory Respiratory: lungs clear, normal breath sounds - Cardiovascular Cardiovascular: regular rate, normal S1, normal S2 Extremities: no clubbing, cyanosis, no inflammation - Gastrointestinal Gastrointestinal: normoactive bowel sounds, soft, non-tender - Integumentary Integumentary: normal - Musculoskeletal Musculoskeletal: no fluid collection, no pain - Psychiatric Psychiatric: mood/affect appropriate - Laboratory Findings CBC and BMP: 03/18/19 05:25 03/18/19 05:25 Abnormal Lab Findings: Abnormal Labs 03/15/19 03/15/19 03/15/19 19:30 19:30 19:30 WBC 3.8 L Hgb 11.7 L Lymph % (Auto) 49.0 H [place] % (Auto) 12.2 H Seg Neutrophils % 35.5 L Seg Neutrophils # 1.3 L PT 15.1 H INR 1.20 H Sodium Chloride Carbon Dioxide BUN Glucose 131 H Free T4 03/15/19 03/18/19 03/18/19 19:30 05:25 05:25 WBC 3.9 L Hgb Lymph % (Auto) [place] % (Auto) Seg Neutrophils % Seg Neutrophils # PT INR Sodium 146 H Chloride 111.4 H Carbon Dioxide 20 L BUN 8 L Glucose Free T4 0.75 L
--- NOTE | 2019-03-18 14:15 | Progress Note ---
Assessment and Plan Assessment and plan: Patient is a 53-year-old man with history of seizure disorder, SDH and hyperlipidemia who presented with a syncopal fall and confusion. Patient has history of cerebral aneurysm status post neurosurgery with aneurysm clip clip in August 2018 and since then patient has never returned to his previous mental status. His new baseline involved him being confused at all times. His is very concerned that he falls multiple times a day. She has trouble controlling his impulsive behavior. She is not able to take care of him because she has 4 small children at home. 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 * CT cervical spine without contrast Impression: I do not see fracture in the cervical spine. 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 With behavioral disturbance: Await mental health evaluation, H/O SDH: consult Neurology Seizure disorder: continue anti-seizure medication, consult Neurology, input noted, ordered EEG Marijuana abuse; patient counseled about cessation Presumed dehydration Ataxia/gait instability: PT DVT prophylaxis with Lovenox Disposition: continue inpatient care, SNF pending-->[facility] willing to accept. History Interval history: Patient was seen and examined. Follow-up on current diagnosis. No overnight events reported to me. Imaging, nursing note, chart, labs and old chart reviewed. Discussed with patient. Hospitalist Physical - Physical exam Narrative exam: Gen: WDWN, NAD, Awake, Alert, Orientated x 1 HEENT: NCAT, EOMI, PERRL, OP Clear Neck: supple, no adenopathy, no thyromegaly, no JVD CVS/Heart: RRR, normal S1S2, pulses present bilaterally Chest/Lungs: CTA B, Symmetrical chest expansion, good air entry bilaterally GI/Abdomen: soft, NTND, good bowel sounds, no guarding or rebound /Bladder: no suprapubic tenderness, no CVA or paraspinal tenderness Extermity/Skin: no c/c/e, no obvious rash MSK: FROM x 4 Neuro: CN 2-12 grossly intact, no new focal deficits Psych: calm - Constitutional Vitals: Temp Pulse Resp BP Pulse Ox 97.0 F L 70 18 141/87 97 03/18/19 11:40 03/18/19 11:40 03/18/19 11:40 03/18/19 11:40 03/18/19 11:40 General appearance: Present: no acute distress, well-nourished Results - Labs CBC & Chem 7: 03/18/19 05:25 03/18/19 05:25 Labs: Laboratory Last Values WBC 3.9 K/mm3 (4.5-11.0) L 03/18/19 05:25 RBC 4.33 M/mm3 (3.65-5.03) 03/18/19 05:25 Hgb 11.9 gm/dl (11.8-15.2) 03/18/19 05:25 Hct 38.0 % (35.5-45.6) 03/18/19 05:25 MCV 88 fl (84-94) 03/18/19 05:25 MCH 28 pg (28-32) 03/18/19 05:25 MCHC 32 % (32-34) 03/18/19 05:25 RDW 14.0 % (13.2-15.2) 03/18/19 05:25 Plt Count 204 K/mm3 (140-440) 03/18/19 05:25 Lymph % (Auto) 49.0 % (13.4-35.0) H 03/15/19 19:30 [place] % (Auto) 12.2 % (0.0-7.3) H 03/15/19 19:30 Eos % (Auto) 3.1 % (0.0-4.3) 03/15/19 19:30 Baso % (Auto) 0.2 % (0.0-1.8) 03/15/19 19:30 Lymph # 1.8 K/mm3 (1.2-5.4) 03/15/19 19:30 [place] # 0.5 K/mm3 (0.0-0.8) 03/15/19 19:30 Eos # 0.1 K/mm3 (0.0-0.4) 03/15/19 19:30 Baso # 0.0 K/mm3 (0.0-0.1) 03/15/19 19:30 Seg Neutrophils % 35.5 % (40.0-70.0) L 03/15/19 19:30 Seg Neutrophils # 1.3 K/mm3 (1.8-7.7) L 03/15/19 19:30 PT 15.1 Sec. (12.2-14.9) H 03/15/19 19:30 INR 1.20 (0.87-1.13) H 03/15/19 19:30 APTT 32.6 Sec. (24.2-36.6) 03/15/19 19:30 D-Dimer < 135.00 ng/mlDDU (0-234) 03/15/19 19:30 Sodium 146 mmol/L (137-145) H 03/18/19 05:25 Potassium 4.1 mmol/L (3.6-5.0) 03/18/19 05:25 Chloride 111.4 mmol/L (98-107) H 03/18/19 05:25 Carbon Dioxide 20 mmol/L (22-30) L 03/18/19 05:25 Anion Gap 19 mmol/L 03/18/19 05:25 BUN 8 mg/dL (9-20) L 03/18/19 05:25 Creatinine 0.9 mg/dL (0.8-1.5) 03/18/19 05:25 Estimated GFR > 60 ml/min 03/18/19 05:25 BUN/Creatinine Ratio 9 % 03/18/19 05:25 Glucose 80 mg/dL (75-100) 03/18/19 05:25 Calcium 9.0 mg/dL (8.4-10.2) 03/18/19 05:25 Magnesium 2.30 mg/dL (1.7-2.3) 03/15/19 19:30 Total Bilirubin < 0.20 mg/dL (0.1-1.2) 03/15/19 19:30 AST 14 units/L (5-40) 03/15/19 19:30 ALT 11 units/L (7-56) 03/15/19 19:30 Alkaline Phosphatase 81 units/L (35-129) 03/15/19 19:30 Total Creatine Kinase 71 units/L (55-170) 03/15/19 19:30 CK-MB (CK-2) < 1.0 ng/mL (0.0-4.0) 03/15/19 19:30 CK-MB (CK-2) Rel Index 1.4 (0-4) 03/15/19 19:30 Troponin T < 0.010 ng/mL (0.00-0.029) 03/15/19 19: Total Protein 6.8 g/dL (6.3-8.2) 03/15/19: Albumin 4.2 g/dL (3.9-5) 03/15/19 19: Albumin/Globulin Ratio 1.6 % 03/15/19 19: TSH 1.970 mlU/mL (0.270-4.200) 03/15/19 19: Free T4 0.75 ng/dL (0.76-1.46) L 03/15/19 19:30 Urine Color Yellow (Yellow) 03/15/19 22:11 Urine Turbidity Clear (Clear) 03/15/19 22:11 Urine pH 7.0 (5.0-7.0) 03/15/19 22:11 Ur Specific [place] 1.016 (1.003-1.030) 03/15/19 22:11 Urine Protein <15 mg/dl mg/dL (Negative) 03/15/19 22:11 Urine Glucose (UA) Neg mg/dL (Negative) 03/15/19 22:11 Urine Ketones Neg mg/dL (Negative) 03/15/19 22:11 Urine Blood Neg (Negative) 03/15/19 22:11 Urine Nitrite Neg (Negative) 03/15/19 22:11 Urine Bilirubin Neg (Negative) 03/15/19 22:11 Urine Urobilinogen 2.0 mg/dL (<2.0) 03/15/19 22:11 Ur Leukocyte Esterase Neg (Negative) 03/15/19 22:11 Urine WBC (Auto) 1.0 /HPF (0.0-6.0) 03/15/19 22:11 Urine RBC (Auto) 1.0 /HPF (0.0-6.0) 03/15/19 22:11 U Epithel Cells (Auto) < 1.0 /HPF (0-13.0) 03/15/19 22:11 Urine Mucus Few /HPF 03/15/19 22:11 Urine Opiates Screen Presumptive negative 03/15/19 22:11 Urine Methadone Screen Presumptive negative 03/15/19 22:11 Ur Barbiturates Screen Presumptive negative 03/15/19 22:11 Levetiracetam 29.0 mcg/mL (12.0-46.0) 03/15/19 21:46 Ur Phencyclidine Scrn Presumptive negative 03/15/19 22:11 Ur Amphetamines Screen Presumptive negative 03/15/19 22:11 U Benzodiazepines Scrn Presumptive negative 03/15/19 22:11 Urine Cocaine Screen Presumptive negative 03/15/19 22:11 U Marijuana (THC) Screen Presumptive positive 03/15/19 22:11 Drugs of Abuse Note Disclamer 03/15/19 22:11 Plasma/Serum Alcohol < 0.01 % (0-0.07) 03/15/19 19:30 Active Medications - Current Medications Current Medications: Generic Name Dose Route Start Last Admin Trade Name Freq PRN Reason Stop Dose Admin Acetaminophen 650 mg 03/15/19 21:36 Tylenol PO Q4H PRN Pain MILD(1-3)/Fever >100.5/[facility]TERO Atorvastatin Calcium 10 mg 03/15/19 22:00 03/17/19 21:29 Atorvastatin PO Not Given QHS [facility] Diphenhydramine HCl 25 mg 03/16/19 20:40 03/18/19 05:43 Benadryl PO 25 mg Q6H PRN Administration Itching Docusate Sodium 100 mg 03/15/19 21:38 Colace PO BID PRN Constipation Enoxaparin Sodium 40 mg 03/16/19 22:00 03/17/19 21:29 Enoxaparin SUB-Q Not Given QDAY@2200 [facility] Haloperidol 1 mg 03/16/19 12:02 03/18/19 05:43 Haldol PO 1 mg Q6H PRN Administration Agitation Sodium Chloride 1,000 mls @ 100 mls/hr 03/15/19 22:00 03/18/19 03:51 Nacl 0.9% 1000 Ml IV 100 mls/hr DIRECT [facility] Administration Levetiracetam 1,500 mg 03/18/19 22:00 Keppra PO BID [facility] Lorazepam 1 mg 03/17/19 14:23 03/17/19 14:33 Ativan IV 1 mg Q4H PRN Administration Agitation Melatonin 5 mg 03/17/19 22:00 03/17/19 23:39 Melatonin PO Not Given QHS [facility] Ondansetron HCl 4 mg 03/15/19 21:36 Zofran IV Q8H PRN Nausea And Vomiting Sodium Chloride 10 ml 03/15/19 22:00 03/17/19 21:30 Sodium Chloride Flush Syringe 10 Ml IV Not Given BID [facility] Sodium Chloride 10 ml 03/15/19 21:36 Sodium Chloride Flush Syringe 10 Ml IV PRN PRN LINE FLUSH
[2019-03-18] MEDS: SODIUM CHLORIDE 0.45% 1000 ML 1,000 ML IV SCH (14:42)
[2019-03-18] MEDS: levETIRAcetam 500 MG TAB PO SCH ×3 (15:15→21:37)
[2019-03-18] MEDS: MELATONIN 5 MG TAB PO SCH (21:37)
[2019-03-18] MEDS: ENOXAPARIN 40 MG/0.4 ML INJ SUB-Q SCH (21:37)
[2019-03-19] MEDS: SODIUM CHLORIDE 0.45% 1000 ML 1,000 ML IV SCH ×2 (01:21→12:30)
[2019-03-19 07:26] LABS: Hematocrit 38.5 % (35.5-45.6); Hemoglobin 12.4 gm/dl (11.8-15.2); Mean Corpuscular HGB Conc 32 % (32-34); Mean Corpuscular Volume 86 fl (84-94); Platelet Count 191 K/mm3 (140-440); Red Blood Count 4.47 M/mm3 (3.65-5.03); Red Cell Distribution Width 13.7 % (13.2-15.2)
[2019-03-19 07:39] LABS: BUN/Creatinine Ratio 10; Blood Urea Nitrogen 9 mg/dL (9-20); Calcium 9.7 mg/dL (8.4-10.2); Hemolysis Index 0
[2019-03-19] MEDS: levETIRAcetam 500 MG TAB PO SCH ×2 (10:10→22:26)
--- NOTE | 2019-03-19 14:37 | Progress Note ---
Assessment and Plan Assessment and plan: Patient is a 53-year-old man with history of seizure disorder, SDH and hyperlipidemia who presented with a syncopal fall and confusion. Patient has history of cerebral aneurysm status post neurosurgery with aneurysm clip clip in August 2018 and since then patient has never returned to his previous mental status. His new baseline involved him being confused at all times. His is very concerned that he falls multiple times a day. She has trouble controlling his impulsive behavior. She is not able to take care of him because she has 4 small children at home. 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 * CT cervical spine without contrast Impression: I do not see fracture in the cervical spine. 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 With behavioral disturbance: Await mental health evaluation, H/O SDH: consult Neurology Seizure disorder: continue anti-seizure medication, consult Neurology, input noted, ordered EEG Marijuana abuse; patient counseled about cessation Presumed dehydration Ataxia/gait instability: PT DVT prophylaxis with Lovenox Disposition: d/c today, [facility] willing to accept but did not like the facility and she refuses to take patient home today because she has to work. Discharge order is in. History Interval history: Patient was seen and examined. Follow-up on current diagnosis. No overnight events reported to me. Imaging, nursing note, chart, labs and old chart reviewed. Discussed with patient. Hospitalist Physical - Physical exam Narrative exam: Gen: WDWN, NAD, Awake, Alert, Orientated x 1 HEENT: NCAT, EOMI, PERRL, OP Clear Neck: supple, no adenopathy, no thyromegaly, no JVD CVS/Heart: RRR, normal S1S2, pulses present bilaterally Chest/Lungs: CTA B, Symmetrical chest expansion, good air entry bilaterally GI/Abdomen: soft, NTND, good bowel sounds, no guarding or rebound /Bladder: no suprapubic tenderness, no CVA or paraspinal tenderness Extermity/Skin: no c/c/e, no obvious rash MSK: FROM x 4 Neuro: CN 2-12 grossly intact, no new focal deficits Psych: calm - Constitutional Vitals: Temp Pulse Resp BP Pulse Ox 98.0 F 101 H 16 127/94 100 03/19/19 13:40 03/19/19 13:40 03/19/19 13:40 03/19/19 13:40 03/19/19 13:40 General appearance: Present: no acute distress, well-nourished Results - Labs CBC & Chem 7: 03/19/19 06:53 03/19/19 06:53 Labs: Laboratory Last Values WBC 3.6 K/mm3 (4.5-11.0) L 03/19/19 06:53 RBC 4.47 M/mm3 (3.65-5.03) 03/19/19 06:53 Hgb 12.4 gm/dl (11.8-15.2) 03/19/19 06:53 Hct 38.5 % (35.5-45.6) 03/19/19 06:53 MCV 86 fl (84-94) 03/19/19 06:53 MCH 28 pg (28-32) 03/19/19 06:53 MCHC 32 % (32-34) 03/19/19 06:53 RDW 13.7 % (13.2-15.2) 03/19/19 06:53 Plt Count 191 K/mm3 (140-440) 03/19/19 06:53 Lymph % (Auto) 49.0 % (13.4-35.0) H 03/15/19 19:30 [place] % (Auto) 12.2 % (0.0-7.3) H 03/15/19 19:30 Eos % (Auto) 3.1 % (0.0-4.3) 03/15/19 19:30 Baso % (Auto) 0.2 % (0.0-1.8) 03/15/19 19:30 Lymph # 1.8 K/mm3 (1.2-5.4) 03/15/19 19:30 [place] # 0.5 K/mm3 (0.0-0.8) 03/15/19 19:30 Eos # 0.1 K/mm3 (0.0-0.4) 03/15/19 19:30 Baso # 0.0 K/mm3 (0.0-0.1) 03/15/19 19:30 Seg Neutrophils % 35.5 % (40.0-70.0) L 03/15/19 19:30 Seg Neutrophils # 1.3 K/mm3 (1.8-7.7) L 03/15/19 19:30 PT 15.1 Sec. (12.2-14.9) H 03/15/19 19:30 INR 1.20 (0.87-1.13) H 03/15/19 19:30 APTT 32.6 Sec. (24.2-36.6) 03/15/19 19:30 D-Dimer < 135.00 ng/mlDDU (0-234) 03/15/19 19:30 Sodium 145 mmol/L (137-145) 03/19/19 06:53 Potassium 4.1 mmol/L (3.6-5.0) 03/19/19 06:53 Chloride 108.7 mmol/L (98-107) H 03/19/19 06:53 Carbon Dioxide 25 mmol/L (22-30) 03/19/19 06:53 Anion Gap 15 mmol/L 03/19/19 06:53 BUN 9 mg/dL (9-20) 03/19/19 06:53 Creatinine 0.9 mg/dL (0.8-1.5) 03/19/19 06:53 Estimated GFR > 60 ml/min 03/19/19 06:53 BUN/Creatinine Ratio 10 % 03/19/19 06:53 Glucose 79 mg/dL (75-100) 03/19/19 06:53 Calcium 9.7 mg/dL (8.4-10.2) 03/19/19 06:53 Magnesium 2.30 mg/dL (1.7-2.3) 03/15/19 19:30 Total Bilirubin < 0.20 mg/dL (0.1-1.2) 11/03/19 19:30 AST 14 units/L (5-40) 03/15/19 19:30 ALT 11 units/L (7-56) 03/15/19 19:30 Alkaline Phosphatase 81 units/L (35-129) 03/15/19 19:30 Total Creatine Kinase 71 units/L (55-170) 03/15/19 19:30 CK-MB (CK-2) < 1.0 ng/mL (0.0-4.0) 03/15/19 19:30 CK-MB (CK-2) Rel Index 1.4 (0-4) 03/15/19 19:30 Troponin T < 0.010 ng/mL (0.00-0.029) 03/15/19 19: Total Protein 6.8 g/dL (6.3-8.2) 03/15/19 19: Albumin 4.2 g/dL (3.9-5) 03/15/19 19:30 Albumin/Globulin Ratio 1.6 % 03/15/19 19: TSH 1.970 mlU/mL (0.270-4.200) 03/15/19 19: Free T4 0.75 ng/dL (0.76-1.46) L 03/15/19 19:30 Urine Color Yellow (Yellow) 03/15/19 22:11 Urine Turbidity Clear (Clear) 03/15/19 22:11 Urine pH 7.0 (5.0-7.0) 03/15/19 22:11 Ur Specific [place] 1.016 (1.003-1.030) 03/15/19 22:11 Urine Protein <15 mg/dl mg/dL (Negative) 03/15/19 22:11 Urine Glucose (UA) Neg mg/dL (Negative) 03/15/19 22:11 Urine Ketones Neg mg/dL (Negative) 03/15/19 22:11 Urine Blood Neg (Negative) 03/15/19 22:11 Urine Nitrite Neg (Negative) 03/15/19 22:11 Urine Bilirubin Neg (Negative) 03/15/19 22:11 Urine Urobilinogen 2.0 mg/dL (<2.0) 03/15/19 22:11 Ur Leukocyte Esterase Neg (Negative) 03/15/19 22:11 Urine WBC (Auto) 1.0 /HPF (0.0-6.0) 03/15/19 22:11 Urine RBC (Auto) 1.0 /HPF (0.0-6.0) 03/15/19 22:11 U Epithel Cells (Auto) < 1.0 /HPF (0-13.0) 03/15/19 22:11 Urine Mucus Few /HPF 03/15/19 22:11 Urine Opiates Screen Presumptive negative 03/15/19 22:11 Urine Methadone Screen Presumptive negative 03/15/19 22:11 Ur Barbiturates Screen Presumptive negative 03/15/19 22:11 Levetiracetam 29.0 mcg/mL (12.0-46.0) 03/15/19 21:46 Ur Phencyclidine Scrn Presumptive negative 03/15/19 22:11 Ur Amphetamines Screen Presumptive negative 03/15/19 22:11 U Benzodiazepines Scrn Presumptive negative 03/15/19 22:11 Urine Cocaine Screen Presumptive negative 03/15/19 22:11 U Marijuana (THC) Screen Presumptive positive 03/15/19 22:11 Drugs of Abuse Note Disclamer 03/15/19 22:11 Plasma/Serum Alcohol < 0.01 % (0-0.07) 03/15/19 19:30 Active Medications - Current Medications Current Medications: Generic Name Dose Route Start Last Admin Trade Name Freq PRN Reason Stop Dose Admin Acetaminophen 650 mg 03/15/19 21:36 Tylenol PO Q4H PRN Pain MILD(1-3)/Fever >100.5/MONTERO Atorvastatin Calcium 10 mg 03/15/19 22:00 03/18/19 21:37 Atorvastatin PO 10 mg QHS RONALDO Administration Diphenhydramine HCl 25 mg 03/16/19 20:40 03/18/19 05:43 Benadryl PO 25 mg Q6H PRN Administration Itching Docusate Sodium 100 mg 03/15/19 21:38 Colace PO BID PRN Constipation Enoxaparin Sodium 40 mg 03/16/19 22:00 03/18/19 21:37 Enoxaparin SUB-Q 40 mg QDAY@2200 RONALDO Administration Haloperidol 1 mg 03/16/19 12:02 03/18/19 05:43 Haldol PO 1 mg Q6H PRN Administration Agitation Sodium Chloride 1,000 mls @ 100 mls/hr 03/18/19 15:00 03/19/19 01:21 Nacl 0.45% 1000 Ml IV 100 mls/hr DIRECT RONALDO Administration Levetiracetam 1,500 mg 03/18/19 15:15 03/19/19 10:10 Keppra PO 1,500 mg BID RONALDO Administration Lorazepam 1 mg 03/17/19 14:23 03/17/19 14:33 Ativan IV 1 mg Q4H PRN Administration Agitation Melatonin 5 mg 03/17/19 22:00 03/18/19 21:37 Melatonin PO 5 mg QHS RONALDO Administration Ondansetron HCl 4 mg 03/15/19 21:36 Zofran IV Q8H PRN Nausea And Vomiting Sodium Chloride 10 ml 03/15/19 22:00 03/19/19 10:10 Sodium Chloride Flush Syringe 10 Ml IV 10 ml BID RONALDO Administration Sodium Chloride 10 ml 03/15/19 21:36 Sodium Chloride Flush Syringe 10 Ml IV PRN PRN LINE FLUSH
--- NOTE | 2019-03-19 14:52 | Progress Note ---
Subjective - Reason for Consult Consult date: 03/19/19 Reason for consult: Psychiatry Follow-up - Chief Complaint Chief complaint: "I'm well" 53 y.o. male who presented to the ER for syncope. Psychiatry was consulted to see the patient for behavioral disturbance. Today the patient was calm and cooperative during the assessment. He was able to ID his and brother when asked. Per the notes, no behavioral disturbances overnight. The patient denies SI/HI's and AVH's. Mental Status Exam - Vital signs Last Vital Signs Temp 98.0 F 03/19/19 13:40 Pulse 101 H 03/19/19 13:40 Resp 16 03/19/19 13:40 BP 127/94 03/19/19 13:40 Pulse Ox 100 03/19/19 13:40 - Exam Narrative exam: MSE: Appearance: calm, cooperative Behavior: regular eye contact Speech: regular rate and tone Mood:: "well" Affect: congruent to mood Thought Process: some confusion Thought Content: denies SI/HI's and AVH's Motor Activity: sitting on the bed Cognition: A/O x2 Insight: variable Judgment: variable Assessment and Plan Impression: Hx of Cerebral Aneurysm/Aneurysm Clip. Insomnia. Today the patient was calm and cooperative during the assessment. Recommendation/Plan: Continue Melatonin 5 mg PO HS for sleep. Educated the patient's about Melatonin, she verbalized understanding. Psy sign off. Dispo: The patient can follow up with his neurologist. Will staff with Dr Marjorie Robert.
[2019-03-19] MEDS: LORazepam 2 MG/ML VIAL IV PRN ×2 (17:05→22:27)
--- NOTE | 2019-03-19 17:57 | Discharge Summary ---
Providers - Providers Date of Admission: 03/15/19 21:36 Date of discharge: 03/20/19 Attending physician: RACH GREENE 03/16/19 12:02 Consult to Mental Health [CONS] Routine Reason For Exam: behavioral disturbance Place consult to:: [facility] Notified:: Phone number called:: [phone] Was contact made?: Yes Time called:: 12:15 Physical Therapy Evaluation and Treat [CONS] Routine Comment: Reason For Exam: ataxia 03/16/19 14:10 Occupational Therapy Evaluate and Treat [CONS] Routine Comment: Reason For Exam: generalized weakness 03/17/19 15:36 Consult to Physician [CONS] Routine Comment: Consulting Provider: ASHLEE BHATTI Physician Instructions: Reason For Exam: Seizures [facility] Condition: Fair Hospital course: Patient is a 53-year-old man with history of seizure disorder, SDH and hyperlipidemia who presented with a syncopal fall and confusion. Patient has history of cerebral aneurysm status post neurosurgery with aneurysm clip clip in August 2018 and since then patient has never returned to his previous mental status. His new baseline involved him being confused at all times. His is very concerned that he falls multiple times a day. She has trouble controlling his impulsive behavior. She is not able to take care of him because she has 4 small children at home. 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 * CT cervical spine without contrast Impression: I do not see fracture in the cervical spine. 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 With behavioral disturbance: Await mental health evaluation, H/O SDH: consult Neurology Seizure disorder: continue anti-seizure medication, consult Neurology, input noted, ordered EEG Marijuana abuse; patient counseled about cessation Presumed dehydration Ataxia/gait instability: PT DVT prophylaxis with Lovenox Disposition: d/c today, [facility] SN[facility] willing to accept but did not like the facility and she refuses to take patient home today because she has to work. Discharge order is in. Disposition: [id number]/[place]-06 HOME UNDER HOME [facility] Time spent for discharge: 36 minutes Core Measure Documentation - Palliative Care Palliative Care/ Comfort Measures: Not Applicable - Core Measures Any of the following diagnoses?: none - VTE Discharge Requirements Deep Vein Thrombosis/Pulmonary Embolism Present on Admission: No Has pt received <5 days of overlap therapy or INR<2.0: No Anticoagulant overlap therapy prescribed at discharge: No Contraindication No Overlap Therapy order at DC: Not Indicated Exam - Physical Exam Narrative exam: Gen: WDWN, NAD, Awake, Alert, Orientated x 1 HEENT: NCAT, EOMI, PERRL, OP Clear Neck: supple, no adenopathy, no thyromegaly, no JVD CVS/Heart: RRR, normal S1S2, pulses present bilaterally Chest/Lungs: CTA B, Symmetrical chest expansion, good air entry bilaterally GI/Abdomen: soft, NTND, good bowel sounds, no guarding or rebound /Bladder: no suprapubic tenderness, no CVA or paraspinal tenderness Extermity/Skin: no c/c/e, no obvious rash MSK: FROM x 4 Neuro: CN 2-12 grossly intact, no new focal deficits Psych: calm - Constitutional Vitals: Temp Pulse Resp BP Pulse Ox 98.0 F 101 H 16 127/94 100 03/19/19 13:40 03/19/19 13:40 03/19/19 13:40 03/19/19 13:40 03/19/19 13:40 Plan Activity: up only with assistance (up with assistance only), fall precautions, other (no strenous activity) Diet: advance as tolerated Additional Instructions: make an appointment with [facility] Department of Neurology. Address: [address] [place], [place] [address]. Follow up with: ANABEL JEFF MD [Primary Care Provider] - 3-5 Days MICHAEL BENAVIDEZ MD [Staff Physician] - 7 Days Prescriptions: Melatonin [Melatonin 5MG TAB] 2 tab PO QHS #60 tablet levETIRAcetam [Keppra TAB] 3 tab PO BID #180 tablet
[2019-03-19] MEDS: ENOXAPARIN 40 MG/0.4 ML INJ SUB-Q SCH (22:26)
[2019-03-19] MEDS: MELATONIN 5 MG TAB PO SCH (22:26)
[2019-03-19 23:14] VITALS: BP 142/82
[2019-03-20] MEDS: levETIRAcetam 500 MG TAB PO SCH (10:09)
== END 2019-03-20 13:17 | disposition home health service (06) ==
LOC: ED 17:46 → 3A 21:36
PROVIDERS: ADMIT Internal Medicine; ATTEND Internal Medicine
DX: G40.909 Epilepsy, unspecified, not intractable, without status epilepticus (principal); G93.41 Metabolic encephalopathy; E66.9 Obesity, unspecified; G93.89 Other specified disorders of brain; R55 Syncope and collapse; E78.5 Hyperlipidemia, unspecified; Z68.28 Body mass index [BMI] 28.0-28.9, adult
CPT/HCPCS: 36415; 70450; 72125; 80048; 80053; 80177; 80307; 81001; 82550; 82553; 83735; 84439; 84443; 84484; 85025; 85027; 85379; 85610; 85730; 87116; 93005; 93010; 96361; 96372; 96374; 96376; 97110; 97116; 97162; 99284; A9270; G0378; J1650; J2060; J7030; 80320; G0480